=== PATIENT | male | born 1990 | race Caucasian/White ===

== ENCOUNTER 2020-06-02 07:07 | Day surgery (SDC) | payer OTHER ==
[~2020-06-02 07:07] MED LIST: Lactated Ringers 1,000 ML IV SCH
[2020-06-02] MEDS ORDERED: fentaNYL 100 MCG/2 ML SDV ONE (07:13)
[2020-06-02] MEDS ORDERED: Propofol 200 MG/20 ML SDV ONE (07:13)
[2020-06-02] MEDS ORDERED: Lidocaine 2% 5 ML SDV ONE (07:13)
[2020-06-02] MEDS ORDERED: Midazolam 1 MG/ML 2 ML SDV ONE (07:13)
--- NOTE | 2020-06-02 08:06 | PCM.PREANE ---
Preanesthetic Assessment - Anesthesia/Transfusion/Family Hx Anesthesia History: Prior Anesthesia Without Reaction Family History of Anesthesia Reaction: No Transfusion History: No Prior Transfusion(s) - Review of Systems General: No Symptoms Pulmonary: No Symptoms Cardiovascular: No Symptoms Neurological: No Symptoms Other: Reports: None - Physical Assessment NPO Status Date: 06/01/20 Vital Signs: Last Vital Signs Temp 97.7 F 06/02/20 07:25 Pulse 77 06/02/20 07:25 Resp 15 06/02/20 07:25 BP 145/84 H 06/02/20 07:25 Pulse Ox 97 06/02/20 07:25 Height: 6 ft 2 in Weight: 97.976 kg ASA Class: 2 Mental Status: Alert & Oriented x3 Airway Class: Mallampati = 2 Dentition: Reports: Normal Dentition ROM/Head Extension: Full Lungs: Clear to Auscultation, Normal Respiratory Effort Cardiovascular: Regular Rate, Regular Rhythm - Allergies Allergies/Adverse Reactions: Allergies Allergy/AdvReac Type Severity Reaction Status Date / Time No Known Allergies Allergy Verified 05/17/20 08:04 - Blood Blood Available: No - Anesthesia Plan Pre-Op Medication Ordered: None - Acknowledgements Anesthesia Type Planned: General Anesthesia (tiva) Pt an Appropriate Candidate for the Planned Anesthesia: Yes Alternatives and Risks of Anesthesia Discussed w Pt/Guardian: Yes Pt/Guardian Understands and Agrees with Anesthesia Plan: Yes PreAnesthesia Questionnaire HEENT History: Reports: None Cardiovascular History: Reports: None Respiratory History: Reports: None Gastrointestinal History: Reports: GERD Other Gastrointestinal History: bloody stools Genitourinary History: Reports: None Musculoskeletal History: Reports: None Neurological History: Reports: None Psychiatric History: Reports: None Endocrine/Metabolic History: Reports: None Hematologic History: Reports: None Immunologic History: Reports: None Oncologic (Cancer) History: Reports: None Dermatologic History: Reports: None - Past Surgical History Head Surgeries/Procedures: Reports: None HEENT Surgical History: Reports: None Cardiovascular Surgical History: Reports: None Respiratory Surgical History: Reports: None GI Surgical History: Reports: None Male Surgical History: Reports: None Endocrine Surgical History: Reports: None Neurological Surgical History: Reports: None Musculoskeletal Surgical History: Reports: Other (See Below) Other Musculoskeletal Surgeries/Procedures:: benign osteochondroma removed from knee Oncologic Surgical History: Reports: None Dermatological Surgical History: Reports: None - SUBSTANCE USE Smoking Status *Q: Former Smoker Tobacco Use Within Last Twelve Months: No Days Per Week of Alcohol Use: 7 Number of Drinks Per Day: 2 Total Drinks Per Week: 14 - HOME MEDS Home Medications: Home Meds Pantoprazole Sodium [Protonix] 20 mg PO DAILY 05/17/20 [History] - CURRENT (IN HOUSE) MEDS Current Meds: Current Medications Lactated Ringer's (Ringers, Lactated) 1,000 mls @ 125 mls/hr IV ASDIRECTED [facility] Discontinued Medications Fentanyl (Sublimaze) Confirm Administered Dose 100 mcg .ROUTE .STK-MED ONE Stop: 06/02/20 07:14 Lactated Ringer's (Ringers, Lactated) 1,000 mls @ 125 mls/hr IV ASDIRECTED [facility] Lidocaine (Xylocaine-Mpf 2%) Confirm Administered Dose 5 ml .ROUTE .STK-MED ONE Stop: 06/02/20 07:14 Midazolam HCl (Versed 1 Mg/Ml) Confirm Administered Dose 2 mg .ROUTE .STK-MED ONE Stop: 06/02/20 07:14 Propofol (Diprivan 20 Ml) Confirm Administered Dose 400 mg .ROUTE .STK-MED ONE Stop: 06/02/20 07:14
--- NOTE | 2020-06-02 09:37 | PCM.OPNOTE ---
- General Post-Op/Procedure Note Date of Surgery/Procedure: 06/02/20 Operative Procedure(s): egd w bx. colonoscopy w bx Findings: see [id number] Pre Op Diagnosis: BRBPR Post-Op Diagnosis: anal fissure Anesthesia Technique: Moderate Sedation Primary Surgeon: Ilia Tiwari Pathology: colon bx egd bx Condition: Good
--- NOTE | 2020-06-02 09:48 | PCM.POSTAN ---
POST ANESTHESIA ASSESSMENT - MENTAL STATUS Mental Status: Alert, Oriented - VITAL SIGNS Vital Signs: Last Vital Signs Temp 97.7 F 06/02/20 07:25 Pulse 56 L 06/02/20 09:44 Resp 13 06/02/20 09:44 BP 109/67 06/02/20 09:44 Pulse Ox 95 06/02/20 09:44 - RESPIRATORY Respiratory Status: Respiratory Rate WNL, Airway Patent, O2 Saturation Stable - CARDIOVASCULAR CV Status: Pulse Rate WNL, Blood Pressure Stable - GASTROINTESTINAL GI Status: No Symptoms - POST OP HYDRATION Hydration Status: Adequate & Stable
--- NOTE | 2020-06-02 09:48 | PCM48HPAN ---
Post Anesthesia Note - EVALUATION WITHIN 48HRS OF ANESTHETIC Vital Signs in Normal Range: Yes Patient Participated in Evaluation: Yes Respiratory Function Stable: Yes Airway Patent: Yes Cardiovascular Function Stable: Yes Hydration Status Stable: Yes Pain Control Satisfactory: Yes Nausea and Vomiting Control Satisfactory: Yes Mental Status Recovered: Yes Vital Signs: Last Vital Signs Temp 97.7 F 06/02/20 07:25 Pulse 56 L 06/02/20 09:44 Resp 13 06/02/20 09:44 BP 109/67 06/02/20 09:44 Pulse Ox 95 06/02/20 09:44
--- NOTE | 2020-06-02 16:23 | OR ---
SURGEON: Ilia Tiwari MD DATE OF PROCEDURE: 06/02/2020 PREOPERATIVE DIAGNOSIS: Bright red blood per rectum. POSTOPERATIVE DIAGNOSES: Esophagogastroduodenoscopy diagnosis is acid reflux or gastroesophageal reflux disease and colonoscopy diagnosis is anal fissure. PROCEDURES PERFORMED: 1. Esophagogastroduodenoscopy with biopsy. 2. Colonoscopy with biopsy. DESCRIPTION OF PROCEDURE: EGD: The patient was taken to the endoscopy room, and with the PON[employer] CYL[employer]ER PRESS OPERATOR, Diprivan was administered. A well-lubricated EGD scope was gently inserted through the oropharynx, down the esophagus, passing through the gastroesophageal junction, into the stomach. The mucosa was examined upon the passage. Any etiology will be noted. Once in the stomach, we continued to advance to the distal antrum, passed through the pylorus into the second portion of the duodenum. Again, the mucosa was examined for any abnormality and etiology. The scope was then retrieved back to the stomach and then retroflexed to look at the fundus of the stomach. If a biopsy was indicated, we will biopsy the antrum, body, and gastroesophageal junction. The air will be sucked out while the scope is retrieved to reduce the patient's discomfort. The patient tolerated the procedure well. There were no intraoperative complications. Dr. Tiwari was present through the whole procedure. Prior to surgery, a time-out had been called, the patient identified, procedure identified and antibiotic administered. The patient was taken to the endoscopy room. A time out was called, patient identified, and procedure identified. Diprivan was then administrated. Patient went from awake to sleep, hearing doctor talking or door closing is normal. Perineum inspection and digital examination were then performed. A well- lubricated colonoscope was gently inserted through the rectum, advanced past the rectosigmoid junction, the descending colon, splenic flexure, transverse colon, hepatic flexure, ascending colon, arrived to the cecum. Cecum was identified as dictated in the finding. Then the scope was carefully withdrawn while attention was paid to the mucosal surface for any abnormality. Air will be sucked out during the scope withdrawal. At the rectum, retroflexed to examine any rectal diseases, fistula or hemorrhoids. During mucosal examination, abnormality or polyp was noted; picture taken and biopsy performed. Patient tolerated procedure well. There were no intraoperative complications, and Dr. Tiwari was present throughout the whole procedure. FINDINGS: EGD findings: 1. The patient is easily sedated with PONY CYLINDER PRESS OPERATOR and Diprivan, the patient is soundly snoring. 2. Oropharynx and proximal esophagus are free of disease, stricture, or inflammation. Distal esophagus at GE junction at 40 shows some moderate amount of salmon-colored change, suggests some acid reflux, moderate. Rugae are normal in appearance. Antrum is a little bit inflamed. Duodenum bulb is a little bit inflamed and the second portion of duodenum is grossly normal, so the patient has some duodenitis at the duodenal bulb. Retroflexed look at the fundus of the stomach, there is no hiatal hernia. Biopsy done at antrum, body, GE junction at 40 and sucked out the gas while scope pulling out. During the whole study, there is no blood or food particle observed, and the patient does have some bile in the stomach. Colonoscopy findings: 1. The patient is easily sedated with PONY CYLINDER PRESS OPERATOR and Diprivan, the patient is soundly snoring. 2. Bowel prep is left to be desirable, almost marginally acceptable with large amount of semi-formed stool coating the mucosa, requiring continuous irrigation. So this is a very compromised study, and the patient probably would benefit to have a repeat study in 1 to 2 years with better bowel prep. Colon is rather straightforward. Cecum indicated by ileocecal fold, one-to-one indentation, appendiceal orifice. ScopeGuide pointing south. Mucosa examined upon scope pulling out with constant irrigation, there is so much semi-formed stool, and the scope is constantly under a puddle of irrigation. Do not see diverticulosis, polyp, mass, inflammation, stricture, ulceration, AV malformation. Random colon biopsy for BRBPR; The stool is yellow, no blood, no dark stool. However, at 12 o'clock area in the anus, the patient has a fissure. Tried the best to look at it, cannot tell whether it is a fissure or fistula. Looked at the rectum from the scope, do not see any open end. Probably, the patient will need to be treated as a fissure, and if it is longer than duration of 3 months, the patient probably will need to be having an exam under anesthesiology to determine whether it is a fistula or fissure. Otherwise, the patient can have another colonoscopy if clinically indicated on an as-needed basis. JOE / FABIANO /[id number] HUBER
== END 2020-06-02 10:55 | disposition home or self-care (01) ==
LOC: MW.SDS 07:07
PROVIDERS: ATTEND Surgery
DX: K60.2 Anal fissure, unspecified (principal); K21.9 Gastro-esophageal reflux disease without esophagitis; K29.80 Duodenitis without bleeding; Z87.891 Personal history of nicotine dependence; Z79.899 Other long term (current) drug therapy
CPT/HCPCS: 43239; 45380; 88305; 88312; J2001; J2250; J2704; J3010; J7120; 00813